=== PATIENT | female | born 1990 ===

== ENCOUNTER 2020-10-21 12:20 | Inpatient (IN) ==
[2020-10-21] MEDS ORDERED: Metoclopramide 10 MG/2 ML VIAL IVP ONE (12:24)
[2020-10-21] MEDS ORDERED: Ringers Solution, Lactated 1,000 ML IVC ONE (12:24)
[2020-10-21] MEDS ORDERED: Oxytocin 20 units/ LR 1000 mL 20 UNIT/1,000 ML BAG IVC ONE ×2 (12:24→17:01)
[2020-10-21] MEDS ORDERED: Famotidine 20 MG/2 ML VIAL IVP ONE (12:24)
[2020-10-21] MEDS ORDERED: CeFAZolin Syr 3,000MG/30 ML 3,000 MG/30 ML SYRINGE IVPB ONE (12:24)
[2020-10-21] MEDS ORDERED: Azithromycin 500 MG in 0.9 % Sodium Chloride 250 ML IVPB PRN (12:24)
[2020-10-21] MEDS ORDERED: Ondansetron 4 MG/2 ML VIAL IVP PRN ×3 (12:28→18:42)
[2020-10-21] MEDS ORDERED: Naloxone 0.4 MG/ML INJ IVP PRN ×3 (12:28→18:42)
[2020-10-21 12:59] LABS: Basophils % 0.3 %; Eosinophils # 0.1 K/mcL (0.0-0.6); Eosinophils % 0.7 %; Hematocrit 35.4 % (35.3-44.9); Hemoglobin 11.5 g/dL (11.5-15.4); Immature Granulocytes % 0.4 % (0-4); Lymphocytes % 18.9 %; Mean Corpuscular HGB Conc 32.5 g/dL (31.6-35.5); Mean Corpuscular Hemoglobin 31.3 pg (28.0-33.3); Mean Corpuscular Volume 96.5 fL (83.0-100.0); Mean Platelet Volume 9.8 fL (9.4-12.4); Monocytes # 0.3 K/mcL (0.0-1.3); Platelet Count 282 K/mcL (140-400); Red Blood Count 3.67 M/mcL (3.82-4.97); Red Cell Distribution Width 14.8 % (11.5-14.5); Segmented Neutrophils % 76.7 %; White Blood Count 10.4 K/mcL (4.3-11.1)
[2020-10-21 13:17] LABS: Amphetamine Screen,Urine Negative ng/mL (Cutoff=1000); Barbiturate Screen,Urine Negative ng/mL (Cutoff=200); Benzodiazepines Screen,Urine Negative ng/mL (Cutoff=200); Cannabinoid Screen,Urine Negative ng/mL (Cutoff = 50); Cocaine Screen,Urine Negative ng/mL (Cutoff= 300); Opiate Screen,Urine Negative ng/mL (Cutoff=300); Phencyclidine Screen,Urine Negative ng/mL (Cutoff=25)
[2020-10-21 13:53] LABS: Alanine Aminotransferase 10 Units/L (7-52); Aspartate Amino Transferase 13 Units/L (13-39); BUN/Creatinine Ratio 18 (6-26); Blood Urea Nitrogen 10 mg/dL (6-20); Lactate Dehydrogenase 172 Units/L (140-271); Uric Acid 5.3 mg/dL (2.3-7.6); eGFR For African Americans > 60 (> 60); eGFR For Non-African Americans > 60 (> 60)
[2020-10-21] MEDS ORDERED: *HR* Morphine Sulfate/PF 10 MG/10 ML AMPUL ONE (13:53)
[2020-10-21] MEDS ORDERED: *HR* FentaNYL (PF) 100 MCG/2 ML VIAL ONE (13:53)
[2020-10-21] MEDS ORDERED: Promethazine 6.25 MG in Water for inj. (sterile) 20 ML IVPB PRN (14:07)
[2020-10-21] MEDS ORDERED: *HR* FentaNYL (PF) 100 MCG/2 ML VIAL IVP PRN (14:07)
[2020-10-21] MEDS ORDERED: *HR* Meperidine 25 MG/ML SYRINGE IVP PRN (14:07)
[2020-10-21] MEDS ORDERED: *HR* Oxytocin 10 UNIT/ML VIAL IM ONE (14:53)
[2020-10-21] MEDS ORDERED: Ringers Solution, Lactated 1,000 ML ONE (14:54)
[2020-10-21] MEDS ORDERED: Acetaminophen IV 1,000 MG/100 ML BAG IVPB ONE (15:03)
[2020-10-21 15:19] LABS: Bilirubin,Urine Negative (Negative); Blood,Urine Negative (Negative); Clarity,Urine Clear (Clear); Color,Urine Light-Yellow (Yellow); Glucose,Urine (UA) Normal (Normal); Ketones,Urine Negative (Negative); Leukocyte Esterase,Urine Negative (Negative); Nitrite,Urine Negative (Negative); Protein,Urine Negative (Neg-Trace); Specific Gravity,Urine 1.012 (1.010-1.025); Urobilinogen,Urine Normal (Normal)
[2020-10-21 15:30] LABS: Protein/Creatinine Ratio,Urine 0.13 mg/mg (0.00-0.20)
[2020-10-21] MEDS ORDERED: Metoclopramide 10 MG/2 ML VIAL IVP PRN (18:42)
[2020-10-21] MEDS ORDERED: Simethicone 80 MG TAB.CHEW PO PRN (18:42)
[2020-10-21] MEDS ORDERED: 0.9 % Sodium Chloride 1,000 ML IVC SCH (18:42)
[2020-10-21] MEDS ORDERED: Oxytocin 20 units/ LR 1000 mL 20 UNIT/1,000 ML BAG IVC SCH (18:42)
[2020-10-21] MEDS ORDERED: Ketorolac 30 MG/ML VIAL IVP SCH (22:00)
[2020-10-22] MEDS: Acetaminophen 325 MG TABLET PO SCH ×2 (01:51→18:17)
[2020-10-22 04:57] LABS: Basophils % 0.2 %; Eosinophils % 0.4 %; Hemoglobin 9.4 g/dL (11.5-15.4); Immature Granulocytes % 0.4 % (0-4); Lymphocytes # 1.8 K/mcL (0.6-4.6); Lymphocytes % 16.3 %; Mean Corpuscular HGB Conc 32.4 g/dL (31.6-35.5); Mean Corpuscular Hemoglobin 31.4 pg (28.0-33.3); Mean Platelet Volume 9.9 fL (9.4-12.4); Monocytes # 0.5 K/mcL (0.0-1.3); Monocytes % 4.8 %; Neutrophils # 8.6 K/mcL (1.6-8.9); Platelet Count 205 K/mcL (140-400); Red Blood Count 2.99 M/mcL (3.82-4.97); Red Cell Distribution Width 14.7 % (11.5-14.5); Segmented Neutrophils % 77.9 %
[2020-10-22] MEDS: Prenatal Vit/FA 1 EACH TABLET PO SCH (09:15)
[2020-10-22] MEDS: Ibuprofen 600 MG TABLET PO SCH ×3 (09:16→22:33)
[2020-10-22] MEDS: *HR* Enoxaparin 60 MG/0.6 ML SYRINGE SQ SCH (14:30)
[2020-10-22] MEDS: *HR* OxyCODONE Immed Rel 5 MG TABLET PO PRN ×2 (14:31→22:33)
[2020-10-23] MEDS: Acetaminophen 325 MG TABLET PO SCH ×2 (01:52→07:59)
[2020-10-23] MEDS: *HR* Enoxaparin 60 MG/0.6 ML SYRINGE SQ SCH (01:53)
[2020-10-23] MEDS: Ibuprofen 600 MG TABLET PO SCH (05:30)
[2020-10-23 07:38] VITALS: BP 129/73; PULSE 83; TEMP 97.8; O2SAT 96
[2020-10-23] MEDS: Prenatal Vit/FA 1 EACH TABLET PO SCH (08:00)
[2020-10-23] MEDS: *HR* OxyCODONE Immed Rel 5 MG TABLET PO PRN (08:00)
== END 2020-10-23 13:56 | disposition home or self-care (01) | DRG 540 ==
LOC: 1NENULAB 12:20 → EDSTATUS 14:00 → 1NENUOBS 18:41
PROVIDERS: ADMIT Obstetrics & Gynecology; ATTEND Obstetrics & Gynecology